=== PATIENT | female | born 1960 | race African-American/Black ===

== ENCOUNTER 2017-10-19 02:30 | Emergency (ER) | payer MEDICAID ==
--- NOTE | 2017-10-19 02:49 | ED Physician Documentation ---
PD HPI FOCAL NEURO - Stated complaint Stated Complaint: STIFF ALL OVER,GASPING FOR BREATH - Chief complaint Chief Complaint: Neuro - History obtained from History obtained from: Patient, Family ( and daughter) - History of Present Illness Timing - onset: Enter time (01:00) Associated symptoms: Seizure Contributing factors: negative: Anticoagulated, Vascular dz, Atrial fibrillation , Prosthetic heart valve Baseline status: positive: A&OX3, ambulatory, indep Similar symptoms before: Has not had sx before Recently seen: Not recently seen - Additional information Additional information: patient and went to bed approximately 11 PM. says he woke at approximately 1 AM due to patient's whole body stiffening and then shaking; he demonstrates what he saw by making rhythmic and jerking motions of his arms and legs. He says this lasted 5-10 minutes. Daughter says that by the time she was alerted, she found patient to have eyes open but not making eye contact. Over the ensuing 5-10 minutes, patient eventually made eye contact but was not speaking, then started gradually speaking but confused. Within approximately 30 minutes of event onset, patient was at baseline (AAOx3). Patient has no h/o similar symptoms. She and are visiting the daughter; they are from [facility]. Patient c/o mild generalized headache, otherwise feels "normal" Review of Systems Constitutional: denies: Fever, Chills, Sweats Eyes: denies: Loss of vision, Decreased vision, Photophobia Cardiac: reports: Reviewed and negative Respiratory: reports: Reviewed and negative GI: reports: Reviewed and negative : denies: Dysuria, Frequency Musculoskeletal: reports: Reviewed and negative Neurologic: reports: Difficulty speaking (resolved), Seizure (description of symptoms are s/o seizure), Confused (resolved), Headache, LOC. denies: Generalized weakness, Focal weakness, Numbness, Head injury PD PAST MEDICAL HISTORY - Past Medical History Past Medical History: Yes GI: GERD - Past Surgical History Past Surgical History: No - Present Medications Home Medications: Ambulatory Orders Medication Instructions Recorded Confirmed Omeprazole [PriLOSEC] 1 cap PO DAILY 10/19/17 10/19/17 - Allergies Allergies/Adverse Reactions: Allergies Allergy/AdvReac Type Severity Reaction Status Date / Time No Known Drug Allergies Allergy Verified 10/19/17 02:44 - Living Situation Living Situation: reports: With family Living Arrangement: reports: At home - Social History Does the pt smoke?: No Does the pt drink ETOH?: No PD ED PE NORMAL - Vitals Vital signs reviewed: Yes - General General: Alert and oriented X 3, No acute distress, Well developed/nourished - HEENT HEENT: PERRL, EOMI, Moist mucous membranes - Neck Neck: Supple, no meningeal sign - Cardiac Cardiac: RRR, No murmur, No gallop, No rub - Respiratory Respiratory: No respiratory distress, Clear bilaterally - Abdomen Abdomen: Soft, Non tender - Derm Derm: Normal color, Warm and dry - Extremities Extremities: No edema - Neuro Neuro: Alert and oriented X 3, 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, No motor deficit, No sensory deficit, Normal speech Eye Opening: Spontaneous Motor: Obeys Commands Verbal: Oriented GCS Score: 15 - Psych Psych: Normal mood, Normal affect NIHSS - Time Time: 02:50 - Level of Consciousness Level of consciousness: (0) Alert, Keenly responsive LOC Questions: (0) Answers both Q's correct LOC Commands: (0) Performs both correctly - Gaze Best Gaze: (0) Normal - Visual Visual: (0) No loss - Facial Palsy Facial Palsy: (0) Normal, symmetrical movement - Motor Arms (both separate) Motor Arm (right): (0) No drift Motor Arm (left): (0) No drift - Motor Legs (both separate) Motor Leg (right): (0) No drift Motor Leg (left): (0) No drift - Limb Ataxia Limb Ataxia: (0) Absent - Sensory Sensory: (0) Normal - Best Language Best Language: (0) No aphasia - Dysarthria Dysarthria: (0) Normal - Extinction and Inattention (formally neg Extinction and inattention: (0) No abnormality - Total Score/Results Total Score/Result: 0 Results - Vitals Vitals: Oxygen O2 Source Room air - EKG (time done) No standard instances Rate: Rate (enter#) (92) Rhythm: NSR Reading: Normal Intervals: Prolonged SD (borderline) QRS: Normal Ischemia: Normal ST segments - Labs Labs: Laboratory Tests 10/19/17 10/19/17 10/19/17 02:40 02:40 02:40 WBC 6.5 RBC 4.46 Hgb 13.3 Hct 41.3 MCV 92.5 MCH 29.8 MCHC 32.2 RDW 14.1 Plt Count 172 MPV 10.4 Neut # 3.7 Lymph # 2.1 Spencer # 0.5 Eos # 0.1 Baso # 0.1 Absolute Nucleated RBC 0.00 Nucleated RBC % 0.1 PT 14.4 H INR 1.3 H APTT 27.4 Sodium 138 Potassium 3.8 Chloride 103 Carbon Dioxide 26 Anion Gap 9.0 BUN 17 Creatinine 1.0 Estimated GFR (MDRD) 70 L Glucose 112 H Calcium 10.3 Troponin I Urine Color Urine Clarity Urine pH Ur Specific [place] Urine Protein Urine Glucose (UA) Urine Ketones Urine Occult Blood Urine Nitrite Urine Bilirubin Urine Urobilinogen Ur Leukocyte Esterase Ur Microscopic Review Urine Culture Comments 10/19/17 10/19/17 02:40 04:08 WBC RBC Hgb Hct MCV MCH MCHC RDW Plt Count MPV Neut # Lymph # [place] # Eos # Baso # Absolute Nucleated RBC Nucleated RBC % PT INR APTT Sodium Potassium Chloride Carbon Dioxide Anion Gap BUN Creatinine Estimated GFR (MDRD) Glucose Calcium Troponin I < 0.04 Urine Color YELLOW Urine Clarity CLEAR Urine pH 6.0 Ur Specific [place] 1.025 Urine Protein NEGATIVE Urine Glucose (UA) NEGATIVE Urine Ketones NEGATIVE Urine Occult Blood NEGATIVE Urine Nitrite NEGATIVE Urine Bilirubin NEGATIVE Urine Urobilinogen 0.2 (NORMAL) Ur Leukocyte Esterase NEGATIVE Ur Microscopic Review NOT INDICATED Urine Culture Comments NOT INDICATED - Rads (name of study) CT head Radiology: Prelim report reviewed, See rad report chest xray Radiology: Prelim report reviewed, See rad report PD MEDICAL DECISION MAKING - ED course Complexity details: reviewed results, re-evaluated patient, considered differential, d/w patient, d/w family ED course: Developed mild bilateral lower back pain during ED stay although NAD when I reevaluated her. Given ibuprofen for this. She had no recurrence of the symptoms that happened [employer]ER while in ED. Patient has no recall of the event. The description provided by and daughter are s/o seizure with post-ictal phase and resolution. Unremarkable w/u. Departure - Departure Disposition: 01 Home, Self Care Clinical Impression: Seizure Condition: Good Instructions: ED Seizure New Onset Unk Cause Follow-Up: [facility] [Provider Group] [facility] [Provider Group] Discharge Date/Time: 10/19/17 06:18
[2017-10-19 03:06] LABS: BASOPHILS # (AUTO) 0.1 10^3/uL (0.0-0.1); EOSINOPHILS # (AUTO) 0.1 10^3/uL (0.0-0.7); EOSINOPHILS % (AUTO) 1.7 %; HGB - HEMOGLOBIN 13.3 g/dL (12.0-16.0); LYMPHOCYTES # (AUTO) 2.1 10^3/uL (1.5-3.5); MEAN CORPUSCULAR HEMOGLOBIN 29.8 pg (27.0-31.0); MEAN CORPUSCULAR HGB CONC 32.2 g/dL (32.0-36.0); MEAN CORPUSCULAR VOLUME 92.5 fL (81.0-99.0); MEAN PLATELET VOLUME 10.4 fL (7.9-10.8); MONOCYTES # (AUTO) 0.5 10^3/uL (0.0-1.0); MONOCYTES % (AUTO) 7.6 %; NEUTROPHILS # (AUTO) 3.7 10^3/uL (1.5-6.6); NEUTROPHILS % (AUTO) 57.7 %; PLT - PLATELET COUNT 172 10^3/uL (130-450); RED BLOOD COUNT 4.46 10^6/uL (4.20-5.40); RED CELL DISTRIBUTION WIDTH 14.1 % (12.0-15.0); WHITE BLOOD COUNT 6.5 x10^3/uL (4.8-10.8)
[2017-10-19 03:08] LABS: CALCIUM 10.3 mg/dL (8.5-10.3)
--- NOTE | 2017-10-19 03:08 | CT Preliminary Report ---
Exam: CT HEAD W/O IMPRESSION: No acute intracranial process identified. [facility] SITE ID: [id number]
[2017-10-19 03:10] LABS: INR 1.3 (0.8-1.2); PT - PROTHROMBIN TIME 14.4 secs (9.9-12.6)
[2017-10-19] MEDS ORDERED: ONDANSETRON 4 MG/2 ML VIAL IVP STA (03:15)
[2017-10-19] MEDS ORDERED: ONDANSETRON 4 MG/2 ML VIAL ONE (03:23)
--- NOTE | 2017-10-19 03:30 | XRAY Preliminary Report ---
Exam: XR CHEST 1 VIEW X-RAY IMPRESSION: 1. No acute abnormality seen in the chest. [facility] SITE ID: [id number]
--- NOTE | 2017-10-19 03:30 | XRAY Report ---
EXAM: CHEST RADIOGRAPHY EXAM DATE: 10/19/2017 03:21 AM. CLINICAL HISTORY: Decreased mental status. COMPARISON: None. TECHNIQUE: 1 view. FINDINGS: Lungs/Pleura: No alveolar consolidation or pleural effusion seen. No pneumothorax. Mediastinum: Within exam limitations, the cardiomediastinal contour is normal. Aortic atherosclerosis . Other: None. IMPRESSION: 1. No acute abnormality seen in the chest. [facility] Referring Provider Line: [phone] SITE ID: [id number]
--- NOTE | 2017-10-19 03:33 | CT Report ---
EXAM: CT HEAD EXAM DATE: 10/19/2017 03:00 AM. CLINICAL HISTORY: Altered mental status, headache, slurred speech. COMPARISON: None. TECHNIQUE: Multiaxial CT images were obtained from the foramen magnum to the vertex. Reformats: Coron al. IV contrast: None. In accordance with CT protocol optimization, one or more of the following dose reduction techniques w ere utilized for this exam: automated exposure control, adjustment of mA and/or KV based on patient s ize, or use of iterative reconstructive technique. FINDINGS: Parenchyma: No intraparenchymal hemorrhage. No evidence of mass, midline shift, or CT findings of inf arction. Mild patchy cerebral white matter hypodensity is noted, typically reflecting chronic microva scular ischemic changes in a patient of this age. Recinos-white differentiation is distinct. Extraaxial Spaces: Normal for age. No subdural or epidural collections identified. Ventricles: Normal in size and position. Sinuses and Orbits: Imaged paranasal sinuses, orbits, and mastoids show no significant abnormality. Bones: No evidence of fracture or calvarial defect. Other: A partially empty sella is noted, usually of no clinical significance. IMPRESSION: No acute intracranial process identified. [facility] Referring Provider Line: [phone] SITE ID: [id number]
[2017-10-19] MEDS ORDERED: SODIUM CHLORIDE 0.9% 1,000 ML IV ONE (03:44)
[2017-10-19 04:21] LABS: BILIRUBIN,URINE NEGATIVE (NEGATIVE); GLUCOSE, URINE (UA) NEGATIVE (NEGATIVE); KETONES,URINE (UA) NEGATIVE (NEGATIVE); LEUKOCYTE ESTERASE, URINE NEGATIVE (NEGATIVE); NITRITE,URINE NEGATIVE (NEGATIVE); OCCULT BLOOD,URINE NEGATIVE (NEGATIVE); PROTEIN,URINE NEGATIVE (NEGATIVE); UROBILINOGEN,URINE 0.2 (NORMAL) E.U./dL (NORMAL)
[2017-10-19 04:24] LABS: CLARITY,URINE CLEAR (CLEAR)
[2017-10-19] MEDS ORDERED: IBUPROFEN 600 MG TABLET PO STA (06:00)
[2017-10-19 06:18] VITALS: BP 148/90
== END 2017-10-19 06:18 | disposition home or self-care (01) ==
LOC: ED 02:30
DX: R56.9 Unspecified convulsions (principal); K21.9 Gastro-esophageal reflux disease without esophagitis
CPT/HCPCS: 36415; 70450; 71045; 80048; 81003; 84484; 85025; 85610; 85730; 93005; 96361; 96374; 99284; 99285; A9270; 81001; 87086

== ENCOUNTER 2018-01-21 09:41 | Emergency (ER) | payer MEDICAID ==
[2018-01-21 09:46] VITALS: BP 153/88
[2018-01-21] MEDS ORDERED: DEXAMETHASONE 10 MG/ML VIAL PO STA (10:32)
--- NOTE | 2018-01-21 10:34 | ED Physician Documentation ---
PD HPI HEENT - Stated complaint Stated Complaint: CAN NOT SWALLOW - Chief complaint Chief Complaint: Heent - History obtained from History obtained from: Patient, Family - History of Present Illness Timing - onset: How many days ago (5) Timing - duration: Days (5) Timing - details: Gradual onset, Still present Location: Throat Improves: Medication Worsens: Swalllowing Associated symptoms: Fever, Congestion, Unable to swallow, Cough Similar symptoms before: Has not had sx before Recently seen: Emergency Dept - Additional information Additional information: 57-year-old previously well female visiting from [facility] has been living in [place] with her children and she is developed a sore throat. She has had a little bit of a cough and she is having bad enough sore throat she has not able to swallow today and her voice is changed. She is worried about throat cancer. She reports that she did not have follow-up from her prior visit for a seizure and that she believes this seizure was related to excessive stress relating to her daughter. Review of Systems Constitutional: reports: Fever Eyes: denies: Decreased vision Ears: denies: Ear pain Nose: reports: Congestion Throat: reports: Sore throat Respiratory: reports: Cough GI: denies: Vomiting : denies: Frequency Skin: denies: Rash Musculoskeletal: reports: Neck pain. denies: Back pain, Extremity pain Neurologic: denies: Generalized weakness, Focal weakness, Numbness PD PAST MEDICAL HISTORY - Past Medical History GI: GERD - Past Surgical History Past Surgical History: No - Present Medications Home Medications: Ambulatory Orders Medication Instructions Recorded Confirmed Omeprazole [PriLOSEC] 1 cap PO DAILY 10/19/17 10/19/17 Amoxicillin 875 mg PO BID #20 tablet 01/21/18 - Allergies Allergies/Adverse Reactions: Allergies Allergy/AdvReac Type Severity Reaction Status Date / Time No Known Drug Allergies Allergy Verified 01/21/18 09:47 - Social History Does the pt smoke?: No Smoking Status: Never smoker Does the pt drink ETOH?: No Does the pt have substance abuse?: No - Immunizations Immunizations are current?: Yes - POLST Patient has POLST: No PD ED PE NORMAL - Vitals Vital signs reviewed: Yes (hypertensive ) - General General: Alert and oriented X 3, No acute distress, Well developed/nourished, Other (The voice is garbbled ) - HEENT HEENT: Atraumatic, PERRL, EOMI, Other (There is minimal inflamation in the left side TM the right is clear. The pharynx is with 2+ TONSILS with exudate and the left tonsil is larger than the right. ) - Neck Neck: Supple, no meningeal sign, No bony TTP, Other (shoddy adenopathy bilaterally and tender submandibular adenopathy. ) - Cardiac Cardiac: RRR, No murmur - Respiratory Respiratory: No respiratory distress, Clear bilaterally - Abdomen Abdomen: Soft, Non tender - Back Back: No CVA TTP, No spinal TTP - Derm Derm: Normal color, Warm and dry, No rash - Extremities Extremities: No deformity, No edema - Neuro Neuro: No motor deficit, No sensory deficit Eye Opening: Spontaneous Motor: Obeys Commands Verbal: Oriented GCS Score: 15 - Psych Psych: Normal mood, Normal affect Results - Vitals Vitals: Vital Signs - 24 hr 01/21/18 09:44 Temperature 36 C L Heart Rate 78 Respiratory 14 Rate Blood Pressure 153/88 H O2 Saturation 100 Oxygen O2 Source Room air - Labs Labs: Laboratory Tests 01/21/18 09:58 Group A Strep Rapid POSITIVE H PD MEDICAL DECISION MAKING - ED course Complexity details: reviewed old records, reviewed results, re-evaluated patient , considered differential, d/w patient, d/w family ED course: 57-year-old female with a sore throat has a positive rapid strep. She does have asymmetric tonsil swelling and is concerned about throat cancer his mother from this. She is treated here in the emergency department today with dexamethasone 10 mg orally we will place her on some amoxicillin and I have asked her to follow-up with the ear nose and throat doctor for reexamination. Departure - Departure Disposition: 01 Home, Self Care Clinical Impression: Strep pharyngitis Condition: Stable Instructions: ED Strep Pharyngitis Conf Follow-Up: [facility] [Provider Group] Prescriptions: Amoxicillin 875 mg PO BID #20 tablet Discharge Date/Time: 01/21/18 10:48
[2018-01-21] MEDS ORDERED: CHERRY SYRUP 10 ML UDC PO ONE (10:45)
== END 2018-01-21 10:48 | disposition home or self-care (01) ==
LOC: ED 09:41
DX: J02.0 Streptococcal pharyngitis (principal)
CPT/HCPCS: 87430; 99283; A9270

== ENCOUNTER 2018-04-30 17:22 | Emergency (ER) | payer SELFPAY ==
--- NOTE | 2018-04-30 19:04 | ED Physician Documentation ---
PD HPI HEADACHE - Stated complaint Stated Complaint: MAHAJAN - Chief complaint Chief Complaint: Neuro - History obtained from History obtained from: Patient - History of Present Illness Timing - onset: How many days ago (6-7) Timing - onset during: Light activity Timing - details: Gradual onset, Still present, Waxing and waning Worst headache ever?: No: Worst headache ever? Location: Back Quality: Throbbing, Aching Associated symptoms: No: Fever, Stiff neck, Nausea, Vomiting, Weakness, Numbness , Vision changes Improved by: Meds (some improved with Tylenol) Worsened by: No: Light, Noise Contributing factors: No: Anticoagulated, Recent illness, Trauma Similar symptoms before: Has not had sx before Recently seen: Emergency Dept (Oct 2017 for fainting episode) Review of Systems Constitutional: denies: Fever, Chills, Myalgias Eyes: denies: Loss of vision, Decreased vision Nose: denies: Rhinorrhea / runny nose, Congestion Throat: denies: Sore throat Respiratory: denies: Cough GI: denies: Abdominal Pain, Nausea, Vomiting, Diarrhea : denies: Dysuria Skin: denies: Rash Musculoskeletal: reports: Neck pain (muscular). denies: Back pain Neurologic: reports: Headache. denies: Generalized weakness, Focal weakness, Numbness, Near syncope, Confused, Altered mental status, Head injury PD PAST MEDICAL HISTORY - Past Medical History Cardiovascular: None Respiratory: None Neuro: None GI: GERD - Past Surgical History Past Surgical History: No - Present Medications Home Medications: Ambulatory Orders Medication Instructions Recorded Confirmed Omeprazole [PriLOSEC] 1 cap PO DAILY 10/19/17 10/19/17 Dexamethasone [Decadron] 4 mg PO DAILY #5 tablet 04/30/18 HYDROcod/ACETAM 5/325 [[place] 5/325] 1 tab PO Q6H PRN #15 tablet 04/30/18 Methocarbamol [Robaxin] 500 mg PO Q6H PRN #25 tablet 04/30/18 Naproxen 375 mg PO BID #20 tablet 04/30/18 - Allergies Allergies/Adverse Reactions: Allergies Allergy/AdvReac Type Severity Reaction Status Date / Time No Known Drug Allergies Allergy Verified 04/30/18 17:38 - Living Situation Living Situation: reports: With spouse/s.o. Living Arrangement: reports: At home, Other (moved here from [facility] about 6-8 months ago) - Social History Does the pt smoke?: No Smoking Status: Never smoker Does the pt drink ETOH?: No Does the pt have substance abuse?: No - Immunizations Immunizations are current?: Yes - POLST Patient has POLST: No PD ED PE NORMAL - Vitals Vital signs reviewed: Yes - General General: Alert and oriented X 3, No acute distress, Well developed/nourished - HEENT HEENT: PERRL, EOMI, Ears normal, Pharynx benign - Neck Neck: Supple, no meningeal sign, No adenopathy - Cardiac Cardiac: RRR, No murmur - Respiratory Respiratory: Clear bilaterally - Abdomen Abdomen: Soft, Non tender - Back Back: No CVA TTP - Derm Derm: Normal color, Warm and dry - Extremities Extremities: No deformity, No tenderness to palpate, Normal ROM s pain - Neuro Neuro: Alert and oriented X 3, tobacco buyer 2-12 intact, No motor deficit, No sensory deficit, Normal speech, Other Eye Opening: Spontaneous Motor: Obeys Commands Verbal: Oriented GCS Score: 15 - Psych Psych: Normal mood Results - Vitals Vitals: Vital Signs - 24 hr 04/30/18 04/30/18 04/30/18 17:32 18:11 21:14 Temperature 36.2 C L 36.5 C 36.6 C Heart Rate 78 79 76 Respiratory 16 18 16 Rate Blood Pressure 154/91 H 165/88 H 141/68 H O2 Saturation 100 100 98 Oxygen O2 Source Room air - Labs Labs: Laboratory Tests 04/30/18 04/30/18 04/30/18 19:50 19:55 19:55 WBC 4.8 RBC 4.26 Hgb 13.3 Hct 39.5 MCV 92.7 MCH 31.3 H MCHC 33.8 RDW 14.0 Plt Count 159 MPV 11.5 H Neut # (Auto) 2.5 Lymph # (Auto) 1.8 [place] # (Auto) 0.4 Eos # (Auto) 0.1 Baso # (Auto) 0.1 Absolute Nucleated RBC 0.00 Nucleated RBC % 0.0 Manual Slide Review Indicated WBC Morphology NORMAL APPEARANCE Platelet Estimate NORMAL (130-450,000) Platelet Morphology 1+ GIANT PLATELETS RBC Morph Micro Appear NORMAL APPEARANCE ESR 11 Sodium 138 Potassium 3.8 Chloride 104 Carbon Dioxide 27 Anion Gap 7.0 BUN 15 Creatinine 1.0 Estimated GFR (MDRD) 70 L Glucose 106 H Calcium 10.5 H Total Bilirubin 0.8 AST 21 ALT 14 Alkaline Phosphatase 81 Total Protein 7.5 Albumin 4.0 Globulin 3.5 Albumin/Globulin Ratio 1.1 Lipase 30 - Rads (name of study) head CT Radiology: Prelim report reviewed, Discussed with rads (no bleeding nor edema. Pituitary tumor noted, which was present on CT Oct 2017 but not identified on Rad report. Suggested MRI to better evaluate. ) PD MEDICAL DECISION MAKING - ED course Complexity details: reviewed results (CT head today similar to Oct 2017, but reading of pituitary tumor that is unchanged from Oct 2017 (not noted in prior result). No ICH. Will want MRI of it to better assess. No local PCP is the problem. But has not changed size in 6 months. ), re-evaluated patient ( discussed need for PCP and to get MRI; if unable to get PCP appt soon/couple weeks, then return to ER and will arrange other follow up mechanism. ), considered differential (had had a CT head in October for fainting episode or such, and was read as normal. Has headache to past week now. No visual changes. No focal weakness. ), d/w patient - Sepsis Event Vital Signs: Vital Signs - 24 hr 04/30/18 04/30/18 04/30/18 17:32 18:11 21:14 Temperature 36.2 C L 36.5 C 36.6 C Heart Rate 78 79 76 Respiratory 16 18 16 Rate Blood Pressure 154/91 H 165/88 H 141/68 H O2 Saturation 100 100 98 Oxygen O2 Source Room air Departure - Departure Disposition: Home, Self Care Clinical Impression: Generalized headache, Pituitary tumor Condition: Stable Record reviewed to determine appropriate education?: Yes Instructions: ED Cephalgia Unspecified Follow-Up: [facility] [Provider Group] [facility] [Provider Group] Prescriptions: Dexamethasone [Decadron] 4 mg PO DAILY #5 tablet HYDROcod/ACETAM 5/325 [[place] 5/325] 1 tab PO Q6H PRN #15 tablet PRN Reason: Pain Methocarbamol [Robaxin] 500 mg PO Q6H PRN #25 tablet PRN Reason: Spasms Naproxen 375 mg PO BID #20 tablet Comments: For the headache, use naproxen twice daily for the next 7-10 days. Also Decadron daily for 5 days for inflammation. Add Robaxin muscle relaxant if needed for stiffness of the neck muscles. Add Tylenol or hydrocodone if needed for pain itself. Call when of the [facility] for follow-up appointment (have provided a couple of numbers). The CT scan showed a tumor in the pituitary area of the brain. It was present in the same size in the October CT scan and looks like a benign tumor but it can still affect to by causing local pressure from the size and swelling. An MRI would better distinguish it and will need to be ordered outpatient through a primary care clinic. Discharge Date/Time: 04/30/18 21:31
[2018-04-30] MEDS ORDERED: DEXAMETHASONE 10 MG/ML VIAL PO STA (19:43)
[2018-04-30] MEDS ORDERED: HYDROcod/ACETAM 5/325 MG TABLET PO STA ×2 (19:43→21:20)
[2018-04-30] MEDS ORDERED: METHOCARBAMOL 500 MG TABLET PO STA (19:43)
[2018-04-30 20:03] LABS: BASOPHILS # (AUTO) 0.1 10^3/uL (0.0-0.1); BASOPHILS % (AUTO) 1.3 %; EOSINOPHILS # (AUTO) 0.1 10^3/uL (0.0-0.7); EOSINOPHILS % (AUTO) 1.2 %; HGB - HEMOGLOBIN 13.3 g/dL (12.0-16.0); LYMPHOCYTES # (AUTO) 1.8 10^3/uL (1.5-3.5); LYMPHOCYTES % (AUTO) 37.7 %; MEAN CORPUSCULAR HEMOGLOBIN 31.3 pg (27.0-31.0); MEAN CORPUSCULAR HGB CONC 33.8 g/dL (32.0-36.0); MEAN CORPUSCULAR VOLUME 92.7 fL (81.0-99.0); MEAN PLATELET VOLUME 11.5 fL (7.9-10.8); MONOCYTES # (AUTO) 0.4 10^3/uL (0.0-1.0); MONOCYTES % (AUTO) 7.4 %; NEUTROPHILS # (AUTO) 2.5 10^3/uL (1.5-6.6); NEUTROPHILS % (AUTO) 52.4 %; PLT - PLATELET COUNT 159 10^3/uL (130-450); RED BLOOD COUNT 4.26 10^6/uL (4.20-5.40); WHITE BLOOD COUNT 4.8 x10^3/uL (4.8-10.8)
[2018-04-30 20:17] LABS: ALBUMIN/GLOBULIN RATIO 1.1 (1.0-2.2); BILIRUBIN,TOTAL 0.8 mg/dL (0.2-1.0); CALCIUM 10.5 mg/dL (8.5-10.3); PLATELET MORPHOLOGY 1+ GIANT PLATELETS (NORMAL); TOTAL PROTEIN 7.5 g/dL (6.7-8.2)
[2018-04-30 20:18] LABS: PLATELET ESTIMATE, MANUAL NORMAL (130-450,000) (NORMAL); RBC MORPHOLOGY (MULTIPLE) NORMAL APPEARANCE (NORMAL)
--- NOTE | 2018-04-30 21:00 | CT Report ---
Reason: headache for a week. Procedure Date: 04/30/2018 Accession Number: [id number] / [id number] Procedure: CT - Head W/O CPT Code: FULL RESULT: EXAM: CT HEAD WITHOUT CONTRAST. EXAM DATE: 04/30/2018 08:09 PM. CLINICAL HISTORY: Headache for a week. COMPARISON: 10/19/2017. TECHNIQUE: Multiaxial CT images were obtained from the foramen magnum to the vertex. Reformats: Coronal. IV contrast: None. In accordance with CT protocol optimization, one or more of the following dose reduction techniques were utilized for this exam: automated exposure control, adjustment of mA and/or KV based on patient size, or use of iterative reconstructive technique. FINDINGS: Parenchyma: Sella is markedly enlarged with erosion of the floor. There is a poorly defined mildly inhomogeneous noncalcified low density lesion measuring 2.6 x 1.9 x 2.0 cm within the enlarged sella. Optic chiasm normal position. Infundibulum not confidently visualized. No intra-axial blood products. Recinos-white junction is normal. No acute infarct. Extraaxial Spaces: Normal for age. No subdural or epidural collections identified. Ventricles: Normal in size and position. Sinuses and Orbits: Sellar enlargement and mass encroach upon the sphenoid sinus. Paranasal sinuses, middle ears and mastoid air cells are otherwise unremarkable. Bones: No acute fracture. Other: None. IMPRESSION: 1. Grossly stable 2.6 x 1.9 x 2.0 cm pituitary lesion. Low density appearance favors craniopharyngioma although statistically nonfunctioning pituitary adenoma more likely. MRI of the head and pituitary recommended to further evaluate. Note, however, acute pituitary apoplexy can present with symptoms even though no appreciable noncontrast CT abnormality. If this lady has any visual symptoms at this time, emergent neurosurgical evaluation warranted. 2. Stable, otherwise unremarkable exam. [facility] The above findings were discussed with You Vazquez by Dr. Claritza Mclean at 20:58 hrs on 04/30/18.
[2018-04-30 21:15] VITALS: BP 141/68
== END 2018-04-30 21:31 | disposition home or self-care (01) ==
LOC: ED 17:22
DX: R51 Headache (principal); D35.2 Benign neoplasm of pituitary gland
CPT/HCPCS: 36415; 70450; 80053; 83690; 85025; 85651; 99283; A9270